=== PATIENT | female | born 2005 | race Caucasian/White ===

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

== ENCOUNTER 2023-02-04 11:51 | Outpatient (RCR) | payer BC, MEDICAID, SELFPAY | END 2023-02-04 23:59 | disposition home or self-care (01) | LOC: SPT 11:51 | PROVIDERS: Visit Provider Nurse Practitioner Family | DX: M54.9 Dorsalgia, unspecified (principal); M54.2 Cervicalgia | CPT/HCPCS: 97161 ==

== ENCOUNTER 2023-02-05 06:00 | Outpatient (RCR) | payer BC, MEDICAID, SELFPAY | END 2023-02-21 23:59 | disposition home or self-care (01) | LOC: SPT 06:00 | PROVIDERS: Visit Provider Nurse Practitioner Family | DX: M54.9 Dorsalgia, unspecified (principal); M54.2 Cervicalgia | CPT/HCPCS: 97110 ==

== ENCOUNTER 2023-08-13 08:35 | Outpatient (CLI) | payer BC, MEDICAID, SELFPAY ==
--- NOTE | 2023-08-13 09:00 | US_ITS ---
WS: [id number] ULTRASOUND BILATERAL BREAST HISTORY: N63.0 - Unspecified lump in unspecified breast COMPARISON: RIGHT breast ultrasound 10/25/2020 TECHNIQUE: 2-D and Doppler. RIGHT breast: Ultrasound directed to 12:00 in the area of interest. No abnormality is identified. Nor mal soft tissue of breast parenchyma. This is a same area as imaged on 10/25/2020 with no abnormality at that time either. LEFT breast: Ultrasound directed to the areola as indicated by the patient. No abnormality. IMPRESSION: US/US breast BI limited* [id number] BI-RADS: 1-Negative FOLLOW-UP: See Report No ultrasound abnormality within either breast in the area of interest.
== END 2023-08-13 08:36 | disposition home or self-care (01) ==
LOC: RAD 08:36
PROVIDERS: Visit Provider Nurse Practitioner Women's Health
DX: N63.42 Unspecified lump in left breast, subareolar (principal); N63.41 Unspecified lump in right breast, subareolar
CPT/HCPCS: 76642

== ENCOUNTER → 2024-04-01 16:58 | Outpatient (BNVA) | payer BC, MEDICAID, SELFPAY | PROVIDERS: Visit Provider Family Medicine | DX: R05.9 Cough, unspecified (principal) | CPT/HCPCS: 87400 ==

== ENCOUNTER → 2024-07-14 11:04 | Outpatient (BNVA) | payer BC, MEDICAID, SELFPAY | PROVIDERS: Visit Provider Nurse Practitioner Women's Health | DX: R00.2 Palpitations (principal); R42 Dizziness and giddiness | CPT/HCPCS: 80053; 82728; 83036; 84439; 84443; 85025; 88175 ==

== ENCOUNTER → 2025-03-02 08:47 | Outpatient (BNVA) | payer BC, MEDICAID, SELFPAY | DX: J02.9 Acute pharyngitis, unspecified (principal) | CPT/HCPCS: 87070; 87880 ==